=== PATIENT | female | born 1960 | race African-American/Black ===

== ENCOUNTER → 2018-09-04 | Outpatient (CLI) | payer OTHER ==
[~2018-09-04] MED LIST: ASPI1TAB31 PO; ATOR10TA PO; FERR325T14 PO; LISI1TAB7 PO
--- NOTE | 2018-09-07 17:08 | PATHOLOGY ---
[facility] Accession Number: [id number] . 01 Material submitted: . RIGHT BREAST, 8:00, 7CFN . 01 Clinical history: . Right breast mass . 02 Diagnosis: Breast tissue, right breast mass 8:00 needle biopsies: - INVASIVE DUCTAL CARCINOMA, HIGH GRADE. SEE COMMENT. - DUCTAL CARCINOMA IN SITU, HIGH GRADE, SOLID AND COMEDO TYPE. (JPM:pit:db 09/07/2018) QTP/09/07/2018 . 02 Comment: Sections of the right breast mass needle biopsy reveal a high grade mammary carcinoma. The tumor shows little tubule formation, with the bulk of the tumor present in solid nests within a reactive desmoplastic stroma. Some of the tumor cell nests show central tumor necrosis. It is difficult to determine whether tumor cell nests represent invasive carcinoma or high-grade ductal carcinoma in situ of solid and comedo type. The tumor cells show marked nuclear pleomorphism. The tumor shows prominent mitotic activity. There is a rare coarse calcification. There is no lymphovascular tumor invasion. . Immunoperoxidase stains for myoepithelial cells are obtained on each of the blocks and yield the following results: . P63 (A1): Absent staining around tumor cell nests. . Smooth muscle myosin heavy chain (A1): Focally positive around some tumor cell nests and absent staining around remaining tumor cell nests. . P63 (A2): Absent staining around most tumor cell nests with focal positive staining around a tumor cell nest. . Smooth muscle myosin heavy chain (A2): Focal staining around tumor cell nests and absent staining around remaining tumor cell nests. . P63 (A3): Absent staining around most tumor cell nests with focal staining around a tumor cell nest. . Smooth muscle myosin heavy chain (A3): Focal staining around tumor cell nests and absent staining around remaining tumor cell nests . The morphologic and immunophenotypic findings are supportive of the diagnosis of invasive high-grade ductal carcinoma and high grade ductal carcinoma in situ. The p63 stain suggests the tumor is predominantly invasive. The smooth muscle myosin heavy chain suggests a larger component of ductal carcinoma in situ. . The case is also examined by Dr. Vergara, who concurs with the diagnosis. . Breast prognostic studies will be obtained, the results of which will be reported separately. (JPM:pit:db 09/07/2018) . Special stains performed: Immunoperoxidase for P63 on A1, A2, and A3 and for Smooth muscle myosin heavy chain on A1, A2, and A3. . 02 Electronically signed: . Marcelino Humphrey MD, Pathologist NPI- [id number] . 01 Gross description: . Received in formalin labeled "Garber, Brenda, right breast," and additionally labeled on the requisition as "8oc 7cfn," are multiple needle cores of yellow-herring fibrofatty tissue measuring 1.3 x 1.0 x 0.3 cm in aggregate dimensions. The tissue is submitted in its entirety in cassette A1 through A3. The cold ischemic time is 5 minutes. The total formalin fixation time is 9 hours and 45 minutes. (TSD; 09/04/2018) /TOB . 02 Pathologist provided ICD-10: C50.911, D05.11 . 02 CPT . 393107, Y49276, M37709 Specimen Comment: A courtesy copy of this report has been sent to Specimen Comment: [phone], , . Specimen Comment: Report sent to ,DR CORTES / DR CHIU Specimen Comment: A duplicate report has been generated due to demographic updates. Performed at: 01 [facility] [address], [place] [id number] MD Triston King MD Phone: [phone] Performed at: 02 [facility] [address] [place], [place] [id number] MD Marcelino Humphrey MD Phone: [phone]
--- NOTE | 2018-09-08 12:54 | RAD ---
Ultrasound-guided right breast biopsy, 09/04/2018: History: Suspicious nodule Previous studies demonstrated a suspicious nodule at the 8:00 location in the right breast. Under local anesthesia, aseptic conditions and sonographic guidance the [employer] biopsy instrument was passed into this nodule via a lateral approach. Multiple 12-gauge vacuum-assisted core samples were obtained and sent to pathology for evaluation. A biopsy marker was then deposited the biopsy site. The biopsy instrument was removed and hemostasis obtained. Two-view postprocedural digital mammograms were then obtained to document position of the biopsy marker which lies within the biopsied nodule. There is minimal adjacent streaky postbiopsy hemorrhage. The patient tolerated the procedure well and left the department in good condition. The subsequent pathology report indicated the presence of invasive ductal carcinoma, high-grade. This is considered to be concordant finding. Note: The receipt of this path report by personnel at Dr. Chapman's office was confirmed by phone on 09/08/2018 at 12:50 PM.
== END | disposition home or self-care (01) ==
LOC: US 12:13
PROVIDERS: ATTEND Surgery
DX: C50.511 Malignant neoplasm of lower-outer quadrant of right female breast (principal); I10 Essential (primary) hypertension; Z88.0 Allergy status to penicillin; Z88.1 Allergy status to other antibiotic agents; Z90.49 Acquired absence of other specified parts of digestive tract; Z98.51 Tubal ligation status; Z98.890 Other specified postprocedural states
CPT/HCPCS: 19083; 77065; 88305; 88341; 88342; 88361; C1713; 19081; 76942

== ENCOUNTER 2018-10-05 07:00 | Outpatient (CLI) | payer OTHER ==
[2018-10-06] MEDS ORDERED: LIDOCAINE WITH 8.4% SOD BICARB 3 ML DISP.SYRIN. INJ ONE (09:15)
[2018-10-06] MEDS ORDERED: BUPIVAC MPF-EPI 0.5%-1:200000 30 ML VIAL. ONE (09:29)
[2018-10-06] MEDS ORDERED: ISOSULFAN BLUE 50 MG/5 ML VIAL. SQ ONE (09:29)
[2018-10-06] MEDS ORDERED: ASPI1TAB31 PO (09:51)
[2018-10-06] MEDS ORDERED: LISI1TAB7 PO (09:52)
[2018-10-06] MEDS ORDERED: ATOR10TA PO (09:53)
[2018-10-06 10:01] VITALS: BP 128/75
--- NOTE | 2018-10-06 16:21 | RAD ---
Examination: SENTINEL NODE INJECTION History: right breast cancer. 0.9mCi Tc99m Filtered Sulfur Colloid and added .5ml 1% buffered lidocaine to dose Comparison/Correlation: None Findings: Cleansing about the right areola was performed with Betadine swabs. Sagittally in 4 nearly equal proportions, a total of 0.9 mCi technetium 99m sulfur colloid was intradermally administered. Impression: Successful intradermal administration of technetium 99 M sulfur colloid. Electronically signed by: Rian Pryor MD (10/06/2018 4:18 PM) [facility]
--- NOTE | 2018-10-06 16:55 | RAD ---
Examination: Specimen radiograph History: Right excisional biopsy. Comparison/Correlation: None Findings: Specimen radiograph was provided. Mass is present with biopsy clip marker within it and calcifications. The wire is also identified within the specimen provided traversing this mass. Impression: Successful excision of the right breast mass.
--- NOTE | 2018-10-06 17:44 | RAD ---
Examination: US GUID NDL PLACE/ASPI/BX History: Right breast 10:00 mass known to represent malignancy Comparison/Correlation: None Findings: Risks and benefits of ultrasound-guided needle localization were discussed with the patient and informed consent was obtained. Liver ultrasound imaging was performed at the right breast 8:00 region for localization purposes. Cleansing with Betadine swabs was performed. Sterile drapes placed. Sterile probe cover and sterile gel utilized. 4 cc 1 percent lidocaine was administered via a lateral approach. Under ultrasound guidance, needle-wire, patient was placed into the right breast and the wire was deployed. Impression: Successful needle-wire localization of the right breast 8:00 mass. Patient tolerated the procedure well without immediate complications. Electronically signed by: Rian Pryor MD (10/06/2018 5:41 PM) [facility]
[2018-10-06] MEDS ORDERED: ATORVASTATIN CALCIUM 10 MG TABLET. PO SCH (21:00)
--- NOTE | 2018-10-18 17:15 | RAD ---
DATE: 10/06/2018 EXAM: DIGITAL DIAGNOSTIC RT HISTORY: Needle-wire localization of the right upper-outer breast mass COMPARISON: 09/04/2018 postbiopsy mammographic exam This study was interpreted with the benefit of Computerized Aided Detection (CAD). Breast Density: SCATTERED The breast parenchyma shows scattered fibroglandular densities. Breast parenchyma level B. FINDINGS: Successful wire localization of the right upper-outer breast mass is noted with biopsy clip marker adjacent to the wire within the mass. Implant contours partially seen. IMPRESSION: Successful wire localization. BI-RADS CATEGORY: 4 SUSPICIOUS ABNORMALITY- BIOPSY SHOULD BE CONSIDERED RECOMMENDED FOLLOW-UP: SURG SURGICAL CONSULTATION PQRS compliance statement: Patient information was entered into a reminder system with a target due date pending surgical procedure for the next mammogram. Mammography is a sensitive method for finding small breast cancers, but it does not detect them all and is not a substitute for careful clinical examination. A negative mammogram does not negate a clinically suspicious finding and should not result in delay in biopsying a clinically suspicious abnormality. "Our facility is accredited by the [employer] Mammography Program."
[2018-11-23] MEDS ORDERED: FERR325T14 PO (13:57)
== END 2018-10-06 | disposition home or self-care (01) ==
LOC: CANPRECLI → RAD 10-06 13:24
PROVIDERS: ATTEND Surgery
DX: N63.10 Unspecified lump in the right breast, unspecified quadrant (principal)
CPT/HCPCS: 19083; 38792; 96374; J3490; Q9968; 76098; 76942; 77065; A9541

== ENCOUNTER 2018-10-06 09:06 | Inpatient (IN) | payer OTHER ==
[2018-10-06] VITALS (9 sets, daily range): BP systolic 128–145; BP diastolic 67–85
[~2018-10-06] VITALS: Ht 162.6 cm; Wt 79.8 kg
[~2018-10-06 09:06] MED LIST changes: -ASPI1TAB31 PO; -ATOR10TA PO; -FERR325T14 PO; +HYDROmorphone 2 MG/ML VIAL IV PRN; +IV RINGERS,LACTATED 1000ML 1,000 ML IV SCH; +LIDOCAINE 1% PF 2 ML VIAL. ID PRN; -LISI1TAB7 PO; +MORPHINE SULFATE 2 MG/ML VIAL. IV PRN; +ONDANSETRON PF 4 MG/2 ML VIAL. IV PRN; +PROCHLORPERAZINE 10 MG/2 ML VIAL. IV PRN; +fentaNYL PF VIAL 100 MCG/2 ML VIAL IV PRN
[2018-10-06] MEDS ORDERED: PROPOFOL 20 ML IV ONE (09:12)
[2018-10-06] MEDS ORDERED: LIDOCAINE 2% PF 5 ML VIAL. ONE (09:12)
[2018-10-06] MEDS ORDERED: fentaNYL PF VIAL 100 MCG/2 ML VIAL ONE (09:12)
[2018-10-06] MEDS ORDERED: BUPIVAC MPF-EPI 0.5%-1:200000 30 ML VIAL. ONE (09:30)
[2018-10-06] MEDS ORDERED: LIDOCAINE WITH 8.4% SOD BICARB 3 ML DISP.SYRIN. ONE (09:30)
[2018-10-06] MEDS ORDERED: ASPI1TAB31 PO (09:51)
[2018-10-06] MEDS ORDERED: LISI1TAB7 PO (09:52)
[2018-10-06] MEDS ORDERED: ATOR10TA PO (09:53)
[2018-10-06] MEDS ORDERED: SCOPOLAMINE 1.5MG PATCH. TD ONE (10:00)
[2018-10-06] MEDS ORDERED: ISOSULFAN BLUE 50 MG/5 ML VIAL. SQ ONE (12:00)
[2018-10-06] MEDS ORDERED: MIDAZOLAM HCL/PF 2 MG/2 ML VIAL. ONE (12:21)
[2018-10-06] MEDS ORDERED: PHENYLEPHRINE in 0.9% NACL PF 1 MG/10 ML SYRINGE. IV ONE (12:48)
[2018-10-06] MEDS ORDERED: PHENYLEPHRINE 10 MG/ML VIAL. ONE ×3 (13:13)
[2018-10-06] MEDS ORDERED: ONDANSETRON PF 4 MG/2 ML VIAL. ONE (13:18)
[2018-10-06] MEDS ORDERED: DEXAMETHASONE SOD PHOS 20 MG/5 ML VIAL. ONE (13:18)
[2018-10-06] MEDS ORDERED: SEVOFLURANE 61 TO 120 MINUTES. IH ONE (13:50)
[2018-10-06] MEDS ORDERED: diphenhydrAMINE HCL 25 MG CAPSULE PO PRN (14:15)
[2018-10-06] MEDS ORDERED: oxyCODONE/APAP 5/325 1 TAB TABLET PO PRN (14:15)
[2018-10-06] MEDS ORDERED: ASA/APAP/CAFFEINE 250/250/65MG TABLET. PO PRN (14:15)
[2018-10-06] MEDS ORDERED: 0.9 % SODIUM CHLORIDE 10 ML DISP.SYRIN. IV PRN (14:15)
[2018-10-06] MEDS ORDERED: ONDANSETRON PF 4 MG/2 ML VIAL. IV PRN (14:15)
[2018-10-06] MEDS ORDERED: HYDROmorphone 2 MG/ML VIAL IV PRN (14:15)
[2018-10-06] MEDS: POTASSIUM CL 20MEQ-0.45% NACL 1,000 ML IV SCH (15:39)
--- NOTE | 2018-10-06 16:36 | NUR ---
pt arrived to unit at 1510 via bed in stable condition. pt dressing is CDI. pt family is at bedside. pt is alert and oriented and has call light within reach. pt is rating her pain 4/10 and is having lots of nausea. received report from XIANG Reyes in PACU. will continue to monitor.
--- NOTE | 2018-10-06 17:22 | PDOC ---
BRIEF OPERATIVE NOTE Date: Oct 06, 2018 Pre-Op Diagnosis invasive carcinoma, right breast Post-Op Diagnosis same Procedure Performed right breast lumpectomy after needle localization right axillary SLN biopsies times five Surgeon Ari KIRAN Anesthesia Type: General (LMA) Blood Loss 20cc IV Fluid 400cc Specimens Obtained right axillary SLNs times five right breast mass LOQ Findings negative SLNs breast specimen with biopsy marker and localization needle in place Complications none Operative Note Wk # [id number] ZOILA CORTES MD Oct 06, 2018 17:22
--- NOTE | 2018-10-06 19:51 | OP ---
DATE OF SURGERY: 10/06/2018 PREOPERATIVE DIAGNOSIS: Invasive carcinoma, right breast. POSTOPERATIVE DIAGNOSIS: Invasive carcinoma, right breast. PROCEDURE: Right breast lumpectomy after needle localization, right axillary sentinel lymph node biopsies x 5. SURGEON: Mack Chapman MD DIRECTOR HEART: MAGNO Belcher. ANESTHESIA: General LMA. BLOOD LOSS: 20 mL. INTRAVENOUS FLUIDS: 400 mL. INDICATIONS: The patient is a 58-year-old status post right breast reduction with implant, who on recent biopsy had an invasive carcinoma. She is brought for lumpectomy and sentinel node biopsy. OPERATIVE REPORT: The patient went to Radiology where she underwent needle localization of the previously placed biopsy marker and injection for sentinel node. She was brought to the OR, given a general anesthetic and the right breast prepped and draped in usual sterile fashion. A 4 mL of Lymphazurin was injected intradermally circumareolarly in the quadrant of the mass. The breast was gently massaged for 5 minutes. Using the C-Trak probe as a guide, a small axillary incision was made after infiltrating with local anesthetic. Dissection was carried down to the axillary contents where we harvested 5 blue, "hot" lymph nodes. All were sent for frozen section. While awaiting those results, the lumpectomy was performed by infiltrating the skin along the incision line and incision was made. The localization wire was delivered into the wound. The tissue around the shoulder of the wire corresponding to the radiographic abnormality and palpable change was excised en bloc. Specimen was sent to Radiology where the specimen radiograph confirmed the presence of the localization wire and the previously placed biopsy marker. After correct sponge count was obtained and hemostasis obtained in the breast, it was approximated with 3-0 Vicryl, skin closed with subcuticular 4-0 Monocryl. Intraoperative report of the axillary nodes showed all were negative. A 19-Andorran round Fadi drain was brought through an inferior lateral stab wound, left in the depths of the axilla, secured to the skin with a 2-0 silk. When a correct sponge count was obtained and hemostasis was present, the skin was closed with a subcuticular 4-0 Monocryl. Steri-Strips and sterile dressings applied, the patient was awakened from her anesthetic and taken to the recovery room in satisfactory condition. MACK V. SEBASTIAN, MD DR: ANUP/nabil JOB#: [id number] / [id number]
[2018-10-06] MEDS: DOCUSATE SODIUM 100 MG CAPSULE. PO SCH (20:53)
[2018-10-06] MEDS ORDERED: ATORVASTATIN CALCIUM 10 MG TABLET. PO SCH (21:00)
[2018-10-07 03:00] VITALS: BP 128/53
[2018-10-07] MEDS: POTASSIUM CL 20MEQ-0.45% NACL 1,000 ML IV SCH (04:05)
[2018-10-07 07:00] VITALS: BP 136/68
--- NOTE | 2018-10-07 07:38 | DISCH ---
DISCHARGE INSTRUCTIONS Condition on Discharge Condition on Discharge: Stable Activity After Discharge Activity Instructions for Disc: Activity as tolerated, Avoid exertion Lifting Instructions after Dis: No heavy lifting Driving Instructions after Dis: Do not drive (2-3 days) Diet after Discharge Diet after Discharge: Regular Wound Incision Care Wound/Incision Care: Ice to area for comfort, Keep wound/cast CDI Follow-Up Follow up with: Ari Tuesday for drain removal ZOILA CORTES MD Oct 07, 2018 07:38
--- NOTE | 2018-10-07 07:40 | PDOC3 ---
Discharge Summary Visit Information Date of Admission: Oct 06, 2018 Date of Discharge: Oct 07, 2018 Admitting Diagnosis Comment: invasive carcinoma right breast Final Diagnosis same Brief Hospital Course Allergies Allergies Coded Allergies Type Severity Reaction Last Updated Verified Penicillins Allergy Intermediate Rash 10/06/18 Yes Tetracyclines Adverse Reaction Mild Nausea and Vomiting 10/06/18 Yes tramadol Adverse Reaction Mild headache 10/06/18 Yes Vital Signs Vital Signs Date Time Temp Pulse Resp B/P (MAP) Pulse Ox O2 Delivery O2 Flow Rate FiO2 10/07/18 03:00 98.1 50 18 128/53 (78) 97 Nasal Cannula 2.0 98.1 Brief Hospital Course Ms. Garber is a 58 old female who presented with biopsy proven invasive carcinoma right breast for lumpectomy and SLN sampling Discharge Information Condition at Discharge: Stable Follow Up: As Needed Disposition/Orders: D/C to Home Scheduled Atorvastatin Calcium (Lipitor) 10 Mg Tablet, 1 TAB PO QHS for cholesterol, #90 Ref 1 (Reported) Entered as Reported by: AME GONZALEZ on 10/06/18952 Last Taken: Unknown Dose on 10/04/18 Last Action: New Order on 10/06/18952 by AME GONZALEZ Lisinopril/Hydrochlorothiazide (Lisinopril-Hctz 20-25 Mg Tab) 1 Each Tablet, 1 TAB PO DAILY for bp, #30 Ref 5 (Reported) Entered as Reported by: AME GONZALEZ on 10/06/18951 Last Taken: Unknown Dose on 10/04/18 Last Action: Converted on 10/06/181407 by ZOILA CORTES Scheduled PRN Aspirin/Acetaminophen/Caffeine (Excedrin Migraine Caplet) 1 Each Tablet, 1 EACH PO BID PRN for HEADACHE, (Reported) Entered as Reported by: AME GONZALEZ on 10/06/18950 Last Taken: Unknown Dose on 10/04/18 Last Action: Continued on 10/06/181407 by ZOILA NAPOLES MD Oct 07, 2018 07:40
[2018-10-07] MEDS ORDERED: ENOXAPARIN 40 MG/0.4 ML SYRINGE. SQ SCH (08:00)
[2018-10-07] MEDS: DOCUSATE SODIUM 100 MG CAPSULE. PO SCH (08:26)
[2018-10-07 08:28] VITALS: BP 128/53
[2018-10-07] MEDS ORDERED: LISINOPRIL 20 MG TABLET PO SCH (09:00)
--- NOTE | 2018-10-07 12:30 | NUR ---
Pt was given dc packet, dressing supplies, and education on dressing change, bulb care, procedure. VSS. Pt is to f/u with MD on Tuesday to remove drain. No questions asked. Pt was escorted to main entrance at 1225.
--- NOTE | 2018-10-10 18:06 | PATHOLOGY ---
[facility] Accession Number: [id number] . 01 Material submitted: . PART A: lymph node - RIGHT AXILLARY SENTINEL NODE #1 - FS. Modifiers: right, axillary tail, 1 PART B: lymph node - RIGHT AXILLARY SENTINEL NODE #2 - FS. Modifiers: right, axillary tail, 2 PART C: lymph node - RIGHT AXILLARY SENTINEL NODE #3 - FS. Modifiers: right, axillary tail, 3 PART D: lymph node - RIGHT AXILLARY SENTINEL NODE #4 - FS. Modifiers: right, axillary tail, 4 PART E: lymph node - RIGHT AXILLARY SENTINEL NODE #5 - FS. Modifiers: right, axillary tail, 5 PART F: breast - RIGHT BREAST MASS, LOWER OUTER QUADRANT. Modifiers: right, left, outer . 01 Clinical history: . Breast cancer. . 02 Frozen section diagnosis: . GROSS DESCRIPTION: . A. The specimen is received fresh for intraoperative consultation and is designated "right axillary sentinel node #1 hot/blue". This consists of a segment of yellow fatty tissue measuring up to 1.3 cm in greatest dimension and showing focal bluish discoloration. Sectioning reveals a yellow and herring lymph node measuring up to 0.8 cm showing focal pale bluish discoloration. This is submitted for frozen section as FSA1. The tissue remaining from frozen section is submitted for permanent sections as A1. . B. The specimen is received fresh for intraoperative consultation and is designated "right axillary sentinel node #2 hot/blue". This consists of a segment of yellow fatty tissue measuring up to 1.8 cm in greatest dimension. Sectioning reveals a yellow and herring-brown lymph node measuring up to 1.5 cm showing focal bluish discoloration. This is submitted for frozen section as FSB1. The tissue remaining from frozen section is submitted for permanent sections as B1. . C. The specimen is received fresh for intraoperative consultation and is designated "right axillary sentinel node #3 hot". This consists of a segment of yellow-red, fatty tissue measuring up to 2.7 x 1.8 x 1.2 cm. Sectioning reveals a lymph node measuring up to 2.5 cm showing extensive central fatty replacement. There is a thin rim of mcdaniel to dark brown cortex. This is submitted for frozen section as FSC1. The tissue remaining from frozen section is submitted for permanent sections as C1. . D. The specimen is received fresh for intraoperative consultation and is designated "right axillary sentinel node #4 hot". This consists of a segment of yellow-red, fatty tissue measuring up to 1.4 cm in greatest dimension. Sectioning reveals an eccentric, small yellow-mcdaniel lymph node measuring up to 0.4 cm. This is submitted for frozen section as FSD1. The tissue remaining from frozen section is submitted for permanent sections as D1. . E. The specimen is received fresh for intraoperative consultation and is designated "right axillary sentinel node #5 hot". This consists of a segment of yellow-red, fatty tissue measuring up to 1.0 cm in greatest dimension. Sectioning reveals a yellow and pinkish-brown lymph node measuring up to 0.7 cm in greatest dimension. This is submitted for frozen section as FSE1. The tissue remaining from frozen section is submitted for permanent sections as E1. . Intraoperative Consultation with Frozen Section: (Zeke Humphrey M.D.) . FSA1. Right axillary sentinel node #1 hot/blue: - Negative for tumor. . The results are reported to Dr. Chapman in the operating room. . FSB1. Right axillary sentinel node #2 hot/blue: - Negative for tumor. . The results are reported to Dr. Chapman in the operating room. . FSC1. Right axillary sentinel node #3 hot: - Negative for tumor. . The results are reported to Dr. Chapman in the operating room. . FSD1. Right axillary sentinel node #4 hot: - Negative for tumor. . The results are reported to Dr. Chapman in the operating room. . FSE1. Right axillary sentinel node #5 hot: - Negative for tumor. . The results are reported to Dr. Chapman in the operating room. (PARAS/bernardo/radha; 10/09/2018) . Frozen sections performed at [facility], [address] [place] [address], [place] [address]. ANNEMARIE/BRITTNEY . 02 Diagnosis: A. Lymph node, right axillary sentinel node #1 hot/blue: - Negative for tumor. . B. Lymph node, right axillary sentinel node #2 hot/blue: - Negative for tumor. . C. Lymph node, right axillary sentinel node #3 hot: - Negative for tumor. . D. Lymph node, right axillary sentinel node #4 hot: - Negative for tumor. . E. Lymph node, right axillary sentinel node #5 hot: - Negative for tumor. . F. Breast tissue, right breast wire localized lumpectomy: - INVASIVE DUCTAL CARCINOMA, HIGH-GRADE, FORMING A FAIRLY WELL DEMARCATED MASS MEASURING UP TO 1.2 CM IN GREATEST DIMENSION. - DUCTAL CARCINOMA IN SITU , HIGH-GRADE, CRIBRIFORM TYPE WITH COMEDO-TYPE NECROSIS, SMALL COMPONENT. - Invasive carcinoma is approximately 0.2 cm from the closest inked margin of resection. - Ductal carcinoma in situ is approximately 0.4 cm from the closest inked margin of resection. - No lymphovascular tumor invasion identified. - Previous biopsy site changes. - Cystic change, focal. - Fibroadenomatous change, small focus. (JPM:radha 10/10/2018) . CAP SYNOPTIC FOR INVASIVE CARCINOMA OF THE BREAST Procedure ___ Wire-localized lumpectomy Specimen Laterality ___ Right Tumor Site ___ Lower outer quadrant Tumor Size ___ Greatest dimension of largest invasive focus >1 mm: 12 mm Histologic Type ___ Invasive carcinoma of no special type (invasive ductal carcinoma, not otherwise specified) . Histologic Grade (Oscar Histologic Score) . Glandular (Acinar)/Tubular Differentiation ___ Score 2 (10% to 75% of tumor area forming glandular/tubular structures) Nuclear Pleomorphism ___ Score 3 Mitotic Rate ___ Score 3 Overall Grade ___ Grade 3 (scores of 8 or 9) Tumor Focality ___ Single focus of invasive carcinoma Ductal Carcinoma In Situ (DCIS) ___ Present ___ Negative for extensive intraductal component (EIC) Architectural Pattern ___ Cribriform Nuclear Grade ___ Grade III (high) Necrosis ___ Present, central (expansive "comedo" necrosis) Lobular Carcinoma In Situ (LCIS) ___ No LCIS in specimen . Tumor Extension Margins: Invasive Carcinoma Margins ___ Uninvolved by invasive carcinoma Distance from closest margin (millimeters): 2 mm Specify closest margin: Specimen not oriented DCIS Margins ___ ___Uninvolved by DCIS Distance from closest margin (millimeters): 4 mm Specify closest margin: ___ Specimen not oriented. Regional Lymph Nodes ___ Uninvolved by tumor cells Number of [place] Nodes Examined: 5 Treatment Effect ___ No known presurgical therapy Lymphovascular Invasion ___ Not identified . Pathologic Stage Classification (pTNM, AJCC 8th Edition) Primary Tumor (pT) ___ pT1c: Tumor > than 10 mm but less than or equal to 20 mm in greatest dimension . Regional Lymph Nodes (pN) Category (pN): ___ pN0: No regional lymph node metastasis identified Additional Pathologic Findings ___ Specify: See diagnosis Microcalcifications ___ Not identified Radiologic Finding ___ Mass or architectural distortion [facility]/10/10/2018 . 02 Comment: Sections of the right breast wire localized lumpectomy reveal an invasive high grade ductal carcinoma which measures up to 1.2 cm in greatest dimension. There is a small component of high grade ductal carcinoma in situ. The margins of excision are negative for invasive carcinoma and ductal carcinoma in situ. . The five sentinel lymph nodes are examined at multiple levels. Immunoperoxidase stains for AE1/AE3 are obtained on each of the sentinel lymph nodes and yield the following results: . AE1/AE3 (A1): Negative for tumor AE1/AE3 (B1): Negative for tumor AE1/AE3 (C1): Negative for tumor AE1/AE3 (D1): Negative for tumor AE1/AE3 (E1): Negative for tumor . Thus, there are a total of five sentinel lymph nodes which are negative for tumor. (JPM/db; 10/09/2018) . Special stains performed: AE1/AE3 on A1, B1, C1, D1, and E1. . 02 Electronically signed: . Marcelino Humphrey MD, Pathologist NPI- [id number] . 01 Gross description: . F. Received in formalin labeled "Brenda Garber, right breast mass, lower outer quadrant, needle localization" is an unoriented breast lumpectomy specimen weighing 34 g and measuring 6.2 x 5.7 x 1.9 cm. A guidewire extends from one aspect of the specimen. This aspect is inked green. The remainder of the margins are inked black. The specimen is serially sectioned into 13 slices. The cut surface is yellow and lobulated with a mcdaniel-white, cystic mass present within slices 5-8. A cylindrical biopsy clip is present within the mass in slice 8. The mass is located 0.3 cm to the margin inked green, 0.8 cm to the margin directly opposite, and at least 2.0 cm from the remaining margins. User Experience Analyst sections of the specimen are submitted as follows: F1 User Experience Analyst slice 4 F2 inventory representative slice 5 F3 inventory representative slice 6 F4 inventory representative slice 7 F5 inventory representative slice 8 F6 inventory representative slice 9 The specimen is removed from the patient at 1320 and placed in formalin at 1340 on October 06, 2018. The specimen is removed from formalin at 1850 on October 08, 2018. ([facility]; 10/08/2018) SYC/SYC . 02 Pathologist provided ICD-10: C50.911, D05.11 . 02 CPT . 586292, 146452, 711590, 759267, 592092, 894968, G35905, 116256, 050937, 792226, 401541, 533404 Specimen Comment: A courtesy copy of this report has been sent to Specimen Comment: [phone], . Specimen Comment: Report sent to / DR CHIU Performed at: 01 [facility] [address], [place] [id number] MD Triston King MD Phone: [phone] Performed at: 02 [facility] [address] [place], [place] [id number] MD Marcelino Humphrey MD Phone: [phone]
--- NOTE | 2018-11-01 15:32 | RAD ---
Examination: US GUID NDL PLACE/ASPI/BX History: Right breast 10:00 mass known to represent malignancy Comparison/Correlation: None Findings: Risks and benefits of ultrasound-guided needle localization were discussed with the patient and informed consent was obtained. Liver ultrasound imaging was performed at the right breast 8:00 region for localization purposes. Cleansing with Betadine swabs was performed. Sterile drapes placed. Sterile probe cover and sterile gel utilized. 4 cc 1 percent lidocaine was administered via a lateral approach. Under ultrasound guidance, needle-wire, patient was placed into the right breast and the wire was deployed. Impression: Successful needle-wire localization of the right breast 8:00 mass. Patient tolerated the procedure well without immediate complications. Electronically signed by: Ifeanyi Borrego MD (10/06/2018 5:41 PM) [facility] DICTATED and SIGNED BY: IFEANYI BORREGO MD DATE: 10/06/18 1741 [employer]
--- NOTE | 2018-11-01 15:33 | RAD ---
DATE: 10/06/2018 EXAM: DIGITAL DIAGNOSTIC RT HISTORY: Needle-wire localization of the right upper-outer breast mass COMPARISON: 09/04/2018 postbiopsy mammographic exam This study was interpreted with the benefit of Computerized Aided Detection (CAD). Breast Density: SCATTERED The breast parenchyma shows scattered fibroglandular densities. Breast parenchyma level B. FINDINGS: Successful wire localization of the right upper-outer breast mass is noted with biopsy clip marker adjacent to the wire within the mass. Implant contours partially seen. IMPRESSION: Successful wire localization. BI-RADS CATEGORY: 4 SUSPICIOUS ABNORMALITY- BIOPSY SHOULD BE CONSIDERED RECOMMENDED FOLLOW-UP: SURG SURGICAL CONSULTATION PQRS compliance statement: Patient information was entered into a reminder system with a target due date pending surgical procedure for the next mammogram. Mammography is a sensitive method for finding small breast cancers, but it does not detect them all and is not a substitute for careful clinical examination. A negative mammogram does not negate a clinically suspicious finding and should not result in delay in biopsying a clinically suspicious abnormality. "Our facility is accredited by the [employer] Mammography Program." DICTATED and SIGNED BY: IFEANYI BORREGO MD DATE: 10/18/18 1710 JOSE
--- NOTE | 2018-11-01 15:34 | RAD ---
Examination: SENTINEL NODE INJECTION History: right breast cancer. 0.9mCi Tc99m Filtered Sulfur Colloid and added .5ml 1% buffered lidocaine to dose Comparison/Correlation: None Findings: Cleansing about the right areola was performed with Betadine swabs. Sagittally in 4 nearly equal proportions, a total of 0.9 mCi technetium 99m sulfur colloid was intradermally administered. Impression: Successful intradermal administration of technetium 99 M sulfur colloid. Electronically signed by: Ifeanyi Borrego MD (10/06/2018 4:18 PM) [facility] DICTATED and SIGNED BY: IFEANYI BORREGO MD DATE: 10/06/18 1618 MTDD
--- NOTE | 2018-11-01 15:34 | RAD ---
Examination: Specimen radiograph History: Right excisional biopsy. Comparison/Correlation: None Findings: Specimen radiograph was provided. Mass is present with biopsy clip marker within it and calcifications. The wire is also identified within the specimen provided traversing this mass. Impression: Successful excision of the right breast mass. DICTATED and SIGNED BY: IFEANYI BORREGO MD DATE: 10/06/18 1649 MTDD
[2018-11-23] MEDS ORDERED: FERR325T14 PO (13:57)
== END 2018-10-07 12:25 | disposition home or self-care (01) | DRG 581 ==
LOC: SURG 09:06 → 4 NORTH 14:10
PROVIDERS: ADMIT Surgery; ATTEND Surgery
PROC: 07B50ZX Excision of Right Axillary Lymphatic, Open Approach, Diagnostic (ICD-10-PCS; principal; 2018-10-06 11:30)
PROC: 0HBT0ZZ Excision of Right Breast, Open Approach (ICD-10-PCS; 2018-10-06 11:30)
DX: C50.411 Malignant neoplasm of upper-outer quadrant of right female breast (principal); I10 Essential (primary) hypertension; E78.5 Hyperlipidemia, unspecified; Z82.61 Family history of arthritis; Z17.0 Estrogen receptor positive status [ER+]; Z82.49 Family history of ischemic heart disease and other diseases of the circulatory system; Z88.0 Allergy status to penicillin
CPT/HCPCS: 38792; 76098; 76942; 77065; 88307; 88331; 88342; 96374; A9541; J0780; J1100; J1650; J1956; J2001; J2250; J2370; J2405; J2704; J3010; J3490; Q9968

== ENCOUNTER → 2018-12-07 | Outpatient (CLI) | payer OTHER ==
[~2018-12-07] MED LIST changes: +AMLO10TA8 PO; +ASPI1TAB31 PO; +ATOR10TA PO; +CONTRAST GIVEN. MC PRN; +FERR325T14 PO; -HYDROmorphone 2 MG/ML VIAL IV PRN; +IOHEXOL 300 MG/ML 100ML VIAL. IV ONE; -IV RINGERS,LACTATED 1000ML 1,000 ML IV SCH; -LIDOCAINE 1% PF 2 ML VIAL. ID PRN; +LISI1TAB7 PO; -MORPHINE SULFATE 2 MG/ML VIAL. IV PRN; -ONDANSETRON PF 4 MG/2 ML VIAL. IV PRN; -PROCHLORPERAZINE 10 MG/2 ML VIAL. IV PRN; -fentaNYL PF VIAL 100 MCG/2 ML VIAL IV PRN
--- NOTE | 2018-12-07 08:58 | RAD ---
CT scan of the chest with contrast 12/07/2018 CLINICAL HISTORY: Chronic cough. History of breast cancer. TECHNIQUE: After the intravenous administration of 75 cc of Omnipaque 300, contiguous, 5 mm axial sections were obtained through the chest and upper abdomen. One or more of the following individualized dose reduction techniques were utilized for this study: 1. Automated exposure control. 2. Adjustment of the mA and/or kV according to patient size. 3. Use of iterative reconstruction technique. FINDINGS: No previous imaging studies are available for comparison. The thoracic aorta is mildly tortuous but tapers normally. The heart is mildly enlarged. Calcified left hilar and mediastinal lymph nodes are seen. No axillary, mediastinal or hilar lymphadenopathy is noted. The patient is post left mastectomy and left breast reconstruction using an implant. A smaller implant is seen in the right breast. A 6 mm calcified granuloma is seen involving the left upper lobe. Five noncalcified nodular opacities seen scattered throughout the right upper lobe which measure 2.5 to 5 mm in size. Two noncalcified nodular opacities are seen involving the left upper lobe which measure 4 to 5 mm in size. No additional pulmonary nodule is seen. No area of consolidation is noted. No pleural effusion or pneumothorax is seen. Images through the upper abdomen demonstrate decreased attenuation of the liver parenchyma consistent with fatty infiltration. Heterogeneous enhancement of the spleen is seen which is felt to most likely reflect arterial enhancement due to the phase of scanning. Very mild S-shaped curvature of the thoracolumbar spine is seen. Degenerative changes are seen involving the thoracic spine. IMPRESSION: 1. Several small noncalcified nodular opacities are seen involving both upper lobes, right greater than left. A follow-up CT scan of the chest in 6 months is recommended to document their stability. 2. No acute abnormality is seen. Electronically signed by: Huseyin Bourne MD (12/07/2018 8:54 AM) [facility]
== END | disposition home or self-care (01) ==
LOC: CT 06:52
PROVIDERS: ATTEND Internal Medicine Hematology & Oncology
DX: J84.10 Pulmonary fibrosis, unspecified (principal); I77.1 Stricture of artery; I89.8 Other specified noninfective disorders of lymphatic vessels and lymph nodes; I51.7 Cardiomegaly; Z90.12 Acquired absence of left breast and nipple; Z85.3 Personal history of malignant neoplasm of breast
CPT/HCPCS: 71260; Q9967

== ENCOUNTER → 2019-03-05 | Outpatient (CLI) | payer OTHER ==
[2018-12-22 15:00] VITALS: BP 125/75
[~2019-03-05] MED LIST changes: -CONTRAST GIVEN. MC PRN; -IOHEXOL 300 MG/ML 100ML VIAL. IV ONE; +LISI1TAB20 PO; -LISI1TAB7 PO
--- NOTE | 2019-03-05 10:20 | RAD ---
Examination: CT CHEST WO CONTRAST History: Lung nodule Comparison/Correlation: 12/07/2018 CT chest with contrast Findings: Axial images of chest were obtained without contrast. Sagittal and coronal reformatted images were provided. Bilateral breast implants are present. Left-sided infusion port tip terminates within the superior vena cava. Several nodules are present bilaterally and have remained stable compared previous exam. Largest of these are involving the left upper lobe measuring up to 0.5 cm in diameter. Some of these are groundglass in appearance. There is development of groundglass infiltrate involving the left apex anteriorly and this is evident on images 51 through 35 of series 3 and images 37 through 40 of coronal series #5. This process measures up to 1.1 cm x 0.7 cm in diameter in the axial plane. No pleural or pericardial effusion in the interval. No enlarged thoracic lymph nodes. Small hiatal hernia is present. No acute bony process. Impression: Multiple small nodules are stable. There is a small new focus of groundglass infiltrate along the anterior left apex. Consider interval follow-up in 6-9 months to assess stability. PQRS Compliance Statement: One or more of the following individualized dose reduction techniques were utilized for this examination: 1. Automated exposure control 2. Adjustment of the mA and/or kV according to patient size 3. Use of iterative reconstruction technique Electronically signed by: Rian Pryor MD (03/05/2019 10:17 AM) [facility]
== END | disposition home or self-care (01) ==
LOC: CT 08:45
PROVIDERS: ATTEND Internal Medicine Pulmonary Disease
DX: R91.8 Other nonspecific abnormal finding of lung field (principal)
CPT/HCPCS: 71250

== ENCOUNTER → 2019-04-04 | Outpatient (CLI) | payer OTHER ==
[2018-12-22 15:00] VITALS: BP 125/75
[~2019-04-04] MED LIST changes: +GADOTERATE 7.5 MMOL/15ML VIAL. IVP ONE
--- NOTE | 2019-04-04 12:03 | RAD ---
EXAM: Brain MRI with and without contrast. HISTORY: Left-sided facial numbness. Breast cancer. TECHNIQUE: Multiplanar, multisequence magnetic resonance imaging of the brain was performed prior to and following the administration of 15 cc Dotarem intravenous contrast. COMPARISON: None. FINDINGS: There is no restricted diffusion to suggest acute or subacute infarction. There is no susceptibility effect to suggest hemorrhage. There is no mass effect or midline shift. There is no hydrocephalus. No suspicious enhancing lesion is seen. There are scattered focal areas of T2/FLAIR hyperintensity within the cerebral white matter and tao. The orbits, paranasal sinuses mastoid air cells are unremarkable. There are normal flow voids within the cerebral vessels. There is no suspicious calvarial lesion. There is degenerative change at C3-C4. IMPRESSION: 1. No acute intracranial finding. 2. Nonspecific foci of signal change within the cerebral white matter and tao, most commonly due to chronic small vessel disease in patients of this age. Electronically signed by: Janny Stahl MD (04/04/2019 11:59 AM) [facility]
== END | disposition home or self-care (01) ==
LOC: MRI 09:32
PROVIDERS: ATTEND Internal Medicine Hematology & Oncology
DX: R51 Headache (principal); C50.511 Malignant neoplasm of lower-outer quadrant of right female breast; R20.0 Anesthesia of skin; Z17.1 Estrogen receptor negative status [ER-]; I10 Essential (primary) hypertension
CPT/HCPCS: 70553; A9575

== ENCOUNTER → 2019-08-21 | Outpatient (CLI) | payer MEDICARE ==
[2018-12-22 15:00] VITALS: BP 125/75
[~2019-08-21] MED LIST changes: +ALPH600C5 PO; +GABA300C18 PO; -GADOTERATE 7.5 MMOL/15ML VIAL. IVP ONE; +HYDR12.575 PO; +LORA10TA68 PO; +POTA20TA4 PO
--- NOTE | 2019-08-21 10:09 | CARD ---
MR#: [id number] Date of Study: 08/21/2019 Ordering Physician: BRADLEY ALBRECHT, Referring Physician: BRADLEY ALBRECHT, Tech: Ruslan Abad RUST APPROVED REPORT EXAM: Two-dimensional and M-mode echocardiogram with Doppler and color Doppler. Other Information Quality : AverageHR: 79bpm Rhythm : NSRTechnically limited study due to breast augmentation INDICATION Hypertension/HCVD Murmur hx chemotherapy and radation 2D DIMENSIONS Left Atrium(2D)3.9 (1.6-4.0cm)IVSd0.9 (0.7-1.1cm) Aortic Root(2D)3.0 (2.0-3.7cm)LVDd4.9 (3.9-5.9cm) PWd1.0 (0.7-1.1cm)LVDs3.4 (2.5-4.0cm) FS (%) 31.2 %SV67.6 ml LVEF(%)58.8 (>50%) Aortic Valve AoV Peak Med.151.0cm/[place] Peak GR.9.1mmHg LVOT Peak Med.109.5cm/s Mitral Valve MV E Ktccliqz05.3cm/sMV DECEL WZEN744es MV A Croyhbxg86.0cm/sE/A Ratio0.9 MV A Czizztoo55ga Pulmonary Valve PV Peak Vfkaskpr86.3cm/s Tricuspid Valve TR P. Ysrjhfjv089mg/sRAP FBQTQKCE3xuJh TR Peak Gr.54niWjOWPE21mnOn Pulmonary Vein S1 Sbcanajg55.8cm/sD2 Nhmnnryd39.0cm/s PVa bisnvkuy777iiks LEFT VENTRICLE The left ventricle is normal size. There is normal left ventricular wall thickness. The left ventricu lar systolic function is normal. The Ejection Fraction is 50-55%. There is normal LV segmental wall m otion. Transmitral Doppler flow pattern is Grade I-abnormal relaxation pattern. RIGHT VENTRICLE The right ventricle is normal size. There is normal right ventricular wall thickness. The right ventr icular systolic function is normal. ATRIA The left atrium size is normal. The right atrium size is normal. The interatrial septum is intact wit h no evidence for an atrial septal defect or patent foramen ovale as noted on 2-D or Doppler imaging. AORTIC VALVE The aortic valve is normal in structure and function. Doppler and Color Flow revealed trace aortic re gurgitation. There is no aortic valvular stenosis. There is no aortic valvular vegetation. MITRAL VALVE The mitral valve is normal in structure and function. There is no mitral valve stenosis. Doppler and Color-flow revealed trace mitral regurgitation. TRICUSPID VALVE The tricuspid valve is normal in structure and function. Doppler and Color Flow revealed trace tricus pid regurgitation with PAP of 27 mmHg. There is no tricuspid valve prolapse or vegetation. There is n o tricuspid valve stenosis. PULMONIC VALVE The pulmonary valve is normal in structure and function. Doppler and Color Flow revealed trace pulmon ic valvular regurgitation. There is no pulmonic valvular stenosis. GREAT VESSELS The aortic root is normal in size. The ascending aorta is normal in size. The pulmonary artery is nor mal. The IVC is normal in size and collapses >50% with inspiration. PERICARDIAL EFFUSION There is no pleural effusion. There is no evidence of significant pericardial effusion. Critical Notification Critical Value: No <Conclusion> The left ventricular systolic function is normal. The Ejection Fraction is 50-55%. There is normal LV segmental wall motion. Transmitral Doppler flow pattern is Grade I-abnormal relaxation pattern. Trace mitral regurgitation. Trace tricuspid regurgitation with PAP of 27 mmHg. There is no evidence of significant pericardial effusion. Signed by : Robin Lomas, Electronically Approved : 08/21/2019 10:08:44
== END | disposition home or self-care (01) ==
LOC: ECHO 08:48
PROVIDERS: ATTEND Internal Medicine Cardiovascular Disease
DX: I10 Essential (primary) hypertension (principal); R01.1 Cardiac murmur, unspecified
CPT/HCPCS: 93306

== ENCOUNTER → 2019-08-30 | Outpatient (CLI) | payer MEDICARE ==
[2018-12-22 15:00] VITALS: BP 125/75
[~2019-08-30] MED LIST changes: +IOHEXOL 300 MG/ML 100ML VIAL. IV ONE
--- NOTE | 2019-08-30 10:22 | RAD ---
CT study of the chest with contrast Clinical indications: Right breast cancer. TECHNIQUE: After IV infusion of 75 cc of Omnipaque 300, helical CT scanning of the chest was performed. PQRS compliance Statement One or more of the following individualized dose reduction techniques were utilized for this study: 1. Automated exposure control 2. Adjustment of the mA and/or kV according to patient size 3. Use of iterative reconstruction technique COMPARISON: March 05, [address] FINDINGS: The left breast is surgically absent and a left breast prosthesis is apparent. Right breast prosthesis is seen which is smaller in comparison to the left prosthesis. This was seen previously. Postsurgical changes of the right breast are seen related to a lumpectomy. There is scarring within the lateral aspect of the right breast which was seen previously. There is an increase in skin thickening of the right breast. This may be related to radiation therapy. Breast finding should be followed mammographically. Patient is due for a mammogram next month which will be one year after the surgical procedure of October 06, 2018. Calcified left hilar and mediastinal lymph nodes are seen due to old granulomatous disease. No enlarging thoracic lymphadenopathy is seen. No thyroid gland mass is seen. No focal aneurysmal dilatation or dissection of the thoracic aorta is seen. The heart size is mildly enlarged. No pericardial effusion is seen. Calcified granulomas of the left upper lobe are seen. However, new subcentimeter noncalcified lung nodules are seen within the left upper lobe. There is a small subpleural subcentimeter nodule within the lateral aspect of the left lower lobe. There are new subcentimeter lung nodules within the right upper lobe and right lower lobe and right middle lobe. Findings are consistent with lung metastatic disease. No lung consolidation or pleural effusion or pneumothorax is seen. The proximal bronchial tree is patent. No lytic process is seen. No adrenal mass is evident. Heterogeneous enhancement of the spleen is seen. Spleen is not enlarged however. This was seen on previous chest CT with IV contrast dated December 07, 2018. Diffuse fatty infiltration of the liver is seen. IMPRESSION: New bilateral subcentimeter noncalcified lung nodules consistent with lung metastatic disease. No enlarging thoracic lymphadenopathy. New finding of skin thickening of the right breast. This may be related to radiation therapy given lumpectomy on the right side. Breast findings should be followed with mammography. The patient is due for yearly follow-up mammogram in September 2019. Therefore, the patient should be scheduled for this study which will be one year from October 06, 2018 surgical procedure. Mild cardiomegaly. This is new. Electronically signed by: Gato Martinez MD (08/30/2019 10:19 AM) [facility]
--- NOTE | 2019-08-30 15:54 | RAD ---
PQRS Compliance Statement: One or more of the following individualized dose reduction techniques were utilized for this examination: 1. Automated exposure control 2. Adjustment of the mA and/or kV according to patient size 3. Use of iterative reconstruction technique Nuclear medicine whole body bone scan History: History of breast cancer. Left rib pain. Comparison: CT chest with contrast, same day. Technique: Examination performed after intravenous administration of 25 mCi Technetium 99m MDP. Images of the whole body were obtained in the anterior and posterior projections after routine delay. Findings: Tracer uptake in the spine is relatively homogeneous. There is mildly increased tracer uptake of several left anterolateral ribs. In correlation with CT there is sclerosis of these ribs, most apparent of the anterolateral fourth rib. Rib uptake is patchy and does not have typical appearance/pattern of posttraumatic uptake. There is faint increased tracer uptake in the upper sternum. Tracer uptake in the pelvis is symmetric. Tracer uptake in the extremities is unremarkable. Tracer uptake of the bilateral shoulders is likely degenerative. Tracer uptake of the anterior calvarium is greater than expected but is relatively symmetric. Tracer distribution in the soft tissues appears normal. Bilateral implants are noted. IMPRESSION: 1. There is patchy mildly increased tracer uptake of several left anterolateral ribs suspicious for bone metastases. 2. Faint increased tracer uptake in the upper sternum, cannot exclude bone metastasis. Electronically signed by: Trent Gandhi MD (08/30/2019 3:51 PM) [id number]
== END | disposition home or self-care (01) ==
LOC: NM 09:23
PROVIDERS: ATTEND Internal Medicine Hematology & Oncology
DX: C50.511 Malignant neoplasm of lower-outer quadrant of right female breast (principal); R91.8 Other nonspecific abnormal finding of lung field; I51.7 Cardiomegaly; K76.0 Fatty (change of) liver, not elsewhere classified; N64.89 Other specified disorders of breast; J84.10 Pulmonary fibrosis, unspecified; Z17.1 Estrogen receptor negative status [ER-]; Z98.82 Breast implant status
CPT/HCPCS: 71260; 78306; A9503; Q9967

== ENCOUNTER → 2019-09-10 | Outpatient (CLI) | payer MEDICARE ==
[2018-12-22 15:00] VITALS: BP 125/75
[~2019-09-10] MED LIST changes: -IOHEXOL 300 MG/ML 100ML VIAL. IV ONE
--- NOTE | 2019-09-12 11:33 | RAD ---
Examination: Right diagnostic mammogram. INDICATION: Right breast thickening on clinical exam by the patient's referring physician. She is a 59-year-old woman with a history of remote left mastectomy in 2002 for breast cancer and more recent right lumpectomy for breast cancer in 2019 with adjuvant radiation therapy. COMPARISON: Right screening mammogram of 08/10/2018, right breast needle localization procedure of 08/10/2018. TECHNIQUE: 2-D and 3-D imaging of the right breast in the implant displaced CC and MLO views were acquired and reviewed with computer-aided detection. FINDINGS: Scattered fibroglandular densities. There is interval diffuse right breast skin thickening. No developing mass, unexplained architectural distortion or suspicious microcalcifications are evident. IMPRESSION: Benign post radiation changes to the right breast. No evidence of residual or recurrent malignancy. Recommend clinical management which may include biopsy if there are any clinically suspicious findings. In the absence of any clinically suspicious findings, recommend follow-up in one year. BI-RADS Category 2 Benign findings Patient entered into a reminder system with target due date for next mammogram. BI-RADS 2 -- benign findings
== END | disposition home or self-care (01) ==
LOC: MAMMO 09:30
PROVIDERS: ATTEND Internal Medicine Hematology & Oncology
DX: R23.4 Changes in skin texture (principal); N64.59 Other signs and symptoms in breast; Z85.3 Personal history of malignant neoplasm of breast
CPT/HCPCS: 77065

== ENCOUNTER → 2020-11-05 | Outpatient (CLI) | payer MEDICARE ==
[2018-12-22 15:00] VITALS: BP 125/75
[~2020-11-05] MED LIST changes: +AMLO-187 PO; -AMLO10TA8 PO; +CONTRAST GIVEN. MC PRN; +IOHEXOL 300 MG/ML 100ML VIAL. IV ONE
--- NOTE | 2020-11-05 10:09 | RAD ---
CT CHEST+ABD+PELVIS W History: Breast cancer Comparison: CT chest 03/05/2019, 08/30/2019. Bone scan 08/30/2019. Technique: CT of the chest, abdomen and pelvis with intravenous contrast. Findings: Pulmonary arteries: No large or central pulmonary embolism. Aorta and great vessels: No aneurysm of the aortic arch or thoracic aorta is seen. Minimal atheroscle rotic calcification. Heart: Mild cardiomegaly. No pericardial effusion. Mild coronary artery calcification. Thyroid: No significant abnormalities. Mediastinum and katelynn: Calcified mediastinal and left hilar lymph nodes. No enlarged adenopathy. Esophagus: The visualized esophagus is normal. Airways: No endobronchial masses. Lungs: Redemonstrated are innumerable bilateral subcentimeter with some increase in number at the rig ht middle lobe compared to August 2019 exam. No discrete nodules demonstrating interval size increased identified. A few calcified pulmonary granulomata redemonstrated. Pleural space: There is no pneumothorax or pleural effusion. General abdomen: No ascites. No free air. Liver : Normal in size and attenuation. No masses seen. Gallbladder/Biliary Tree: Status post cholecystectomy. Mild common duct dilation, 9 mm. Pancreas: Normal. Spleen: Normal in size and attenuation. An ovoid 7 mm nodule anterior to the spleen favored to repres ent small splenule. Adrenal glands: Normal. Kidneys: No hydronephrosis or hydroureter. No renal masses identified. Gastrointestinal: Diverticulosis without evidence for diverticulitis. Lymph nodes: Shotty mesenteric and retroperitoneal adenopathy. Vessels: Mild aortoiliac calcification. Pelvic Organs: Unremarkable reproductive organs. No pelvic masses. The bladder is unremarkable. Soft tissues: Postsurgical changes from left mastectomy and bilateral breast implants. Bones: No acute or aggressive lesions. No rib lesions corresponding to bone scan findings are identif ied. Impression: 1. History of breast cancer with left mastectomy and bilateral breast implants. Redemonstrated pulmo nary nodules with relative increase in number involving the right middle lobe but without continued e nlargement of any discrete nodules. This is previously thought to represent pulmonary metastatic dise ase. Differential also includes chronic infectious or inflammatory process. 2. No other evidence of metastatic disease. ------ Exposure: One or more of the following individualized dose reduction techniques were utilized for thi s examination: 1. Automated exposure control 2. Adjustment of the mA and/or kV according to patient size 3. Use of iterative reconstruction technique. Electronically signed by: Jeovanny Espinal MD (11/05/2020 10:06 AM) [facility]
--- NOTE | 2020-11-05 14:43 | RAD ---
EXAM: BONE SCINTIGRAPHY. HISTORY: Breast cancer.. TECHNIQUE: Following the intravenous injection of 25.1 mCi of Tc-99m labeled methylene diphosphonate (MDP), delayed images of the whole body were performed in anterior and posterior projections. COMPARISON: Bone scan 08/30/2019. CT chest abdomen pelvis 09/05/2020. FINDINGS: There is very subtle linear increased uptake associated with a few lower anterior left ribs and and anterior lower right rib which appears not significantly changed from the August 2019 compari son exam. No new areas of increased radiotracer activity. IMPRESSION: 1. Slightly increased radiotracer activity associated with a few lower left anterior ribs in a right lower anterior rib which are not significantly changed from the August 2019 comparison. Osseous metast atic disease is not excluded, however there is no corresponding lesion seen on CT and benign etiology is favored. Electronically signed by: Jeovanny Espinal MD (11/05/2020 2:41 PM) [facility]
== END ==
LOC: NM 08:53
PROVIDERS: ATTEND Internal Medicine
DX: C50.411 Malignant neoplasm of upper-outer quadrant of right female breast (principal); C50.919 Malignant neoplasm of unspecified site of unspecified female breast; Z90.12 Acquired absence of left breast and nipple
CPT/HCPCS: 71260; 74177; 78306; A9503; Q9967

== ENCOUNTER → 2021-02-05 | Outpatient (CLI) | payer MEDICARE ==
[2018-12-22 15:00] VITALS: BP 125/75
[~2021-02-05] MED LIST changes: -IOHEXOL 300 MG/ML 100ML VIAL. IV ONE
[2021-02-05] MEDS: IOHEXOL 300 MG/ML 100ML VIAL. IV ONE (09:39)
--- NOTE | 2021-02-05 11:00 | RAD ---
EXAM: CT OF THE CHEST, ABDOMEN AND PELVIS WITH CONTRAST. HISTORY: Restaging breast cancer. TECHNIQUE: Computed tomography of the chest, abdomen and pelvis was performed after the intravenous a dministration of iodinated contrast. One or more of the following individualized dose reduction techn iques were utilized for this examination: 1. Automated exposure control. 2. Adjustment of the mA and/or kV according to patient size. 3. Use of iterative reconstruction technique. COMPARISON: 11/05/2020. FINDINGS: Bone windows reveal no suspicious lesions. There are changes of left mastectomy and bilateral breast reconstruction. Scarring in the left axilla is consistent with ahmet dissection. A spiculated nodule laterally in the right breast measures 1.2 cm. And is stable There are no pathologically enlarged mediastinal or axillary lymph nodes. Calcified mediastinal lymph nodes are likely secondary to old granulomatous disease. There is no pleural or pericardial effusion. The heart is not enlarged. There is a small hiatal herni a. Many small predominantly subpleural nodules in the right lung anteriorly are unchanged. Groundglass n odules posteriorly in the right lower lobe on image 27 measure up to 6 mm and are not clearly changed . Another tiny nodules elsewhere are also stable. There is a calcified granuloma in the left upper lo be. A 5 mm hypoattenuating focus within hepatic segment 3 on image 20 is stable. Ill-defined regions of h ypoattenuation within the spleen are less prominent and likely reflect differential perfusion of red and white pulp. The gallbladder is surgically absent. The common duct measures 11 mm and tapers aldo lly distally. A small nodule inferiorly in the left adrenal gland measures 9 mm and is unchanged. The right adrenal gland is unremarkable. The pancreas and kidneys are unremarkable. A left para-aortic lymph node on image 20 measures 2.2 x 1.0 cm and is unchanged. There are no other enlarged lymph nodes. There is no small bowel obstruction. A small umbilical hernia contains only fat . IMPRESSION: 1. Many small pulmonary nodules most notably within the right middle lobe are unchanged since 020, but new since 03/05/2019. Considerations include the sequela of a chronic atypical infectious pr ocess, or stable treated metastatic disease. 2. Stable enlarged left retroperitoneal lymph node. 3. Stable 1.2 cm spiculated nodule laterally in the right breast. Correlate for a known diagnosis. 4. Small hiatal hernia. Small umbilical hernia containing only fat. 5. Mild extrahepatic biliary dilatation status post cholecystectomy. Correlate for cholestasis to ass ess significance. Electronically signed by: Francisco Santiago MD (02/05/2021 10:58 AM) [id number]
--- NOTE | 2021-02-05 14:19 | RAD ---
EXAM: BONE SCINTIGRAPHY. HISTORY: Breast cancer. TECHNIQUE: Tc-99m MDP was administered intravenously. Scintigraphic images of the entire body were ob tained in anterior and posterior projections after a delay. COMPARISON: Today's CT, 11/05/2020. FINDINGS: There are no foci of intense uptake suggestive of osseous metastatic disease. Mild degenera tive uptake is noted at the right calcaneal tuberosity, both mid feet, and both sternoclavicular/acro mioclavicular joints. IMPRESSION: 1. No scintigraphic evidence of osseous metastatic disease. Electronically signed by: Francisco Santiago MD (02/05/2021 2:16 PM) [id number]
== END ==
LOC: NM 09:42
PROVIDERS: ATTEND Internal Medicine Hematology & Oncology
DX: C50.411 Malignant neoplasm of upper-outer quadrant of right female breast (principal); R91.8 Other nonspecific abnormal finding of lung field; K42.0 Umbilical hernia with obstruction, without gangrene; K44.9 Diaphragmatic hernia without obstruction or gangrene; Z90.49 Acquired absence of other specified parts of digestive tract
CPT/HCPCS: 71260; 74177; 78306; A9503; Q9967

== ENCOUNTER → 2021-08-21 | Outpatient (CLI) | payer OTHER, MEDICARE ==
[2018-12-22 15:00] VITALS: BP 125/75
[~2021-08-21] MED LIST changes: +IOHEXOL 240 MG/ML 50ML VIAL. PO ONE; +IOHEXOL 300 MG/ML 100ML VIAL. IV ONE; -LISI1TAB20 PO; +LISI1TAB39 PO
--- NOTE | 2021-08-21 13:13 | RAD ---
CT CHEST+ABD+PELVIS W dated 08/21/2021 9:25 AM Indication:Reason: BREAST CA / Spl. Instructions: OMNI 300 75ML OMNI 240 50ML / History: Comparison: CT 02/05/2021 Technique: Helical CT images were performed following oral contrast ingestion and using infusion of 7 5 mL Omnipaque 300. One or more of the following individualized dose reduction techniques were utilized for this examinat ion: 1. Automated exposure control 2. Adjustment of the mA and/or kV according to patient size 3. Use of iterative reconstruction technique Findings: CT chest: There is evidence of previous granulomatous infection. Nodularity described previously also in the anterior right lung has significantly regressed. This may have represented an infectious proc ess. No significant new pulmonary parenchymal abnormality is seen. The central airways show no obstru ction. No enlarged lymph nodes are seen. Bilateral breast implants are again demonstrated. Soft tissu e nodularity projecting in the lateral right breast has not changed appreciably. No new bone lesion i s seen. CT abdomen and pelvis: No new liver parenchymal abnormality is evident. The spleen continues to show a diffuse vaguely nodular appearance. This is unchanged. No new dominant lesion is identified. Both k idneys enhance with contrast. There is no apparent mass or obstruction. The adrenal glands are not en larged. Pancreas appears normal. Small retroperitoneal lymph nodes appear similar to the prior exam. A borderline enlarged node adjacent to the left adrenal gland appears stable. No enlarged nodes are s een. There is no new abdominal mass. There continues to be some soft tissue nodularity anteriorly in the region of the omentum. The largest nodule to the right of midline measures up to about 1.4 cm, si milar to the previous study. Images through the pelvis show no abnormality of the distal ureters. The bladder was not well-distend ed, but appears normal. No pelvic or inguinal adenopathy is seen. There is no separate pelvic mass or clear cut inflammatory process. There is fairly prominent diverticulosis of the sigmoid colon. There may be some thickening of the wall the colon through this region, but there is no obvious adjacent i nflammation. No new bone lesion is seen. IMPRESSION: CT chest: Some previously demonstrated small nodules have regressed. There are no significant new fin dings. CT abdomen and pelvis: Nodular appearance of the spleen has been similar on multiple previous studies . Left retroperitoneal lymph node appears unchanged. There is suggestion of some omental nodularity. This appears unchanged back at least to the exam of 11/05/2020. Possible mild diverticulitis or colitis. Electronically signed by: Gustavo Gold Jr., MD (08/21/2021 12:29 PM) [facility]
== END ==
LOC: CT 09:06
PROVIDERS: ATTEND Internal Medicine Hematology & Oncology
DX: C50.411 Malignant neoplasm of upper-outer quadrant of right female breast (principal); R91.8 Other nonspecific abnormal finding of lung field; K57.30 Diverticulosis of large intestine without perforation or abscess without bleeding
CPT/HCPCS: 71260; 74177; Q9966; Q9967

== ENCOUNTER → 2021-09-14 | Outpatient (CLI) | payer OTHER, MEDICARE ==
[2018-12-22 15:00] VITALS: BP 125/75
[~2021-09-14] MED LIST changes: -CONTRAST GIVEN. MC PRN; -IOHEXOL 240 MG/ML 50ML VIAL. PO ONE; -IOHEXOL 300 MG/ML 100ML VIAL. IV ONE
--- NOTE | 2021-09-14 15:17 | RAD ---
PROCEDURE: US BREAST RT, MG DIGITAL UNILAT DIAGNOSTIC MAMMO WITH LEO HISTORY: The patient is 61 years old and is seen for Reason: Breast Cancer; RT Breast Burning per pt / Spl. Instructions: / History: . Prior left mastectomy. COMPARISON: September 03, 2021, September 10, 2019 and October 06, 2018 TECHNIQUE: CC and MLO views of right breast were obtained. Images were processed by the [employer] computer-aided detection system. Spot compression views of the right breast. Targeted ultrasound of the right breast. DENSITY: There are scattered fibroglandular densities. FINDINGS: Right mammogram: Developing asymmetry with architectural distortion and increased spiculation within the upper outer lumpectomy site. There is increased density compared to prior. Right ultrasound: Spiculated irregular hypoechoic region within the right breast 9:30 position 8 cm f rom the nipple in the region to prior lumpectomy site. Small cystic changes centrally. No ultrasound evidence of abnormality within the 10:00 position 3 cm to correspond with previous ultrasound results or within the region the patient's complaint. IMPRESSION: 1. Developing asymmetry within the right upper outer breast in the region of prior lumpectomy site w ith increased architectural distortion compared to 2020. Findings may relate to increased scarring or malignant recurrence. Recommend ultrasound-guided biopsy to further assess. Results were discussed w ith the patient and the patient agrees with the plan. Recommend annual screening mammograms per [employer] [employer] guidelines. BI-RADS category 4 Findings suspicious for malignancy Our clinic nurse has been instructed to assist with communicating findings and recommendations to the patient's referring physician and in scheduling follow-up. Patient entered into a reminder system for annual screening mammogram. FOR INTERNAL CODING PURPOSES Critical result: Findings discussed with Dr. MOHAN nurse at 09/14/2021 3:14 PM. RESULT CODE: (C) Electronically signed by: Jaden Sharp DO (09/14/2021 3:14 PM) [id number]
== END ==
LOC: MAMMO 13:53
PROVIDERS: ATTEND Internal Medicine Hematology & Oncology
DX: C50.411 Malignant neoplasm of upper-outer quadrant of right female breast (principal)
CPT/HCPCS: 76641; 77065; G0279; 77061